=== PATIENT | female | born 1970 | race Caucasian/White ===

== ENCOUNTER 2017-12-07 15:00 | Outpatient (CLI) | payer OTHER ==
--- NOTE | 2017-12-08 16:03 | MMO ---
MAMMOGRAM DIGITAL SCREENING BILATERAL: DATE: 12/07/17 HISTORY: 47-year-old female for routine bilateral screening mammogram. COMPARISON: 01/26/16 and 01/19/15. TECHNIQUE: Digital mammographic views. Computer-aided detection (CAD) utilized. FINDINGS: There are scattered areas of fibroglandular density. There is no evidence of suspicious mass, suspicious calcifications, or architectural distortion. The re is no significant interval change since the prior mammogram. IMPRESSION: 1. BIRADS 1 - Negative. 2. Recommendation: routine bilateral annual screening mammogram (unless the patient develops suspici ous clinical findings that would warrant earlier imaging follow up). felicitas [] POS: [facility]
== END 2017-12-07 15:01 | disposition home or self-care (01) ==
LOC: SCSMAMMO 15:00
PROVIDERS: ATTEND Family Medicine
DX: Z12.31 Encounter for screening mammogram for malignant neoplasm of breast (principal)
CPT/HCPCS: 77067

== ENCOUNTER 2018-06-19 14:44 | Emergency (ER) | payer OTHER ==
[2018-06-19] MEDS ORDERED: Ketorolac Tromethamine 30 MG/ML VIAL ONE (15:25)
--- NOTE | 2018-06-19 15:31 | RAD ---
SINGLE VIEW CHEST: Date: 06/19/18 COMPARISON: None. HISTORY: Chest pain since yesterday. FINDINGS: Single view of the chest shows normal sized cardiomediastinal silhouette. Atelectasis is seen in both lung bases. There is no evidence of consolidation, mass, or pleural effusion. IMPRESSION: Bibasilar atelectasis. POS: [facility]
[2018-06-19 15:39] LABS: #Basophils 0.1 thou/uL (0.0-0.2); #Eosinphils 0.2 thou/uL (0.0-0.7); #Lymphocytes 2.4 thou/uL (1.20-3.40); #Monocytes 0.7 thou/uL (0.11-0.59); #Neutrophils 6.5 thou/uL (1.40-6.50); %Basophils 1.3 % (0.0-1.0); %Eosinophils 1.6 % (0.0-10.0); %Lymphocytes 24.2 % (21.0-51.0); %Monocytes 7.5 % (0.0-10.0); %Neutrophils 65.4 % (42.0-75.0); Hemoglobin 15.5 g/dL (12.0-16.0); Mean Corpuscular HGB CONC 33.5 g/dL (32.0-36.0); Mean Corpuscular Hemoglobin 30.1 pg (27.0-31.0); Mean Corpuscular Volume 90.1 fL (78.0-98.0); Mean Platelet Volume 7.8 fL (7.4-10.4); Platelet Count 336 thou/uL (130-400); RBC Distribution Width 12.2 % (11.5-14.5); Red Blood Cell (RBC) Count 5.14 mill/uL (4.20-5.40); White Blood Cell (WBC) Count 9.9 thou/uL (4.8-10.8)
[2018-06-19 15:43] LABS: ALT (SGPT) 22 U/L (8-55); AST (SGOT) 18 U/L (5-34); Albumin 4.2 g/dL (3.5-5.0); Alkaline Phosphatase 88 U/L (40-150); Anion Gap 14 mmol/L (10-20); BUN (Urea Nitrogen) 9 mg/dL (7.0-18.7); Bilirubin, Total 0.4 mg/dL (0.2-1.2); Calc. Creatinine Clearance 0 mL/min (70-130); Calcium 9.8 mg/dL (7.8-10.44); Carbon Dioxide 31 mmol/L (22-29); Chloride 96 mmol/L (98-107); Estimated GFR-MDRD 82; Globulin 3.1 g/dL (2.4-3.5); Glucose 146 mg/dL (70-105); Lipase 18 U/L (8-78); Protein, Total 7.3 g/dL (6.0-8.3); Sodium 138 mmol/L (136-145)
[2018-06-19] MEDS ORDERED: Morphine 4 MG/ML Carpuject ONE (16:12)
[2018-06-19] MEDS ORDERED: Potassium Chloride 20 MEQ TAB ONE (16:13)
--- NOTE | 2018-06-19 17:38 | CT ---
CT ANGIO OF CHEST PERFORMED WITH INTRAVENOUS CONTRAST ENHANCEMENT WITH 3D RECONSTRUCTIONS 06/19/18 HISTORY: Chest pain. There is a pleural based density seen along the right side of the anterior mediastinum in the right u pper lobe. It measures in the 7 mm range. There is a noncalcified 2 to 3 mm right upper lobe pulmonar y nodule seen. There are some parenchymal changes within the right middle lobe which are more linear in nature. There is also linear changes in both bases suggestive more of atelectasis than a focal inf iltrative process. There is a nodular parenchymal density seen within the lingula. Appears to have an air bronchogram within it. It would be more suggestive of an infiltrative process than a pulmonary m ass. It is seen on axial image 76 and measures approximately 2 cm in size. In addition, within the le ft upper lobe, there is a pulmonary nodule that has some minimal surrounding parenchymal change. It m easures 10 mm in size. It is more mass-like in appearance but could still present some nodular infilt rate. There is no significant mediastinal or hilar lymphadenopathy. There are small subcentimeter nodes se en. The thoracic aorta is normal in caliber. The pulmonary arteries are well opacified and there is no CT evidence for pulmonary embolus. The visualized liver parenchyma shows no focal findings on this angiographic phase exam. The right an d left adrenal glands are normal. IMPRESSION: 1. No CT evidence for pulmonary embolus. 2. Moderate linear parenchymal changes in the right middle lobe and both lung bases more suggest mayra of atelectasis than infiltrate. There is a patchy nodular infiltrate within the lingula and a mor e defined 10 mm nodular density seen in the left upper lobe, although this could be part of an infect ious process. The possibility of a pulmonary mass is definitely not excluded. I would recommend short term followup at 2 to 3 weeks after appropriate therapy, particularly if patient has symptoms that w ould suggest an infectious process. POS: [facility]
== END 2018-06-19 17:50 | disposition home or self-care (01) ==
LOC: SCSER 14:44
DX: J18.9 Pneumonia, unspecified organism (principal); R07.81 Pleurodynia; I10 Essential (primary) hypertension; F32.9 Major depressive disorder, single episode, unspecified; F17.210 Nicotine dependence, cigarettes, uncomplicated
CPT/HCPCS: 71045; 71275; 80053; 83690; 84484; 85025; 85379; 93005; 96361; 96374; 96375; J1885; J2270

== ENCOUNTER 2018-07-18 08:13 | Outpatient (CLI) | payer OTHER ==
[2018-07-18] MEDS ORDERED: Iopamidol 300 61% 100 ML VIAL FS ONE (09:00)
[2018-07-18 09:31] LABS: ALT (SGPT) 22 U/L (8-55); Alkaline Phosphatase 85 U/L (40-150); Anion Gap 13 mmol/L (10-20); BUN (Urea Nitrogen) 16 mg/dL (7.0-18.7); Bilirubin, Total 0.4 mg/dL (0.2-1.2); Calc. Creatinine Clearance 0 mL/min (70-130); Calcium 9.9 mg/dL (7.8-10.44); Carbon Dioxide 31 mmol/L (22-29); Cardiac Risk 4.6 (Less than 4.5); Chloride 101 mmol/L (98-107); Cholesterol 195 mg/dl (< 200 Desired); Estimated GFR-MDRD 82; Glucose 129 mg/dL (70-105); HDL Cholesterol 42 mg/dL (>60 Neg Risk); LDL Cholesterol, Calculated 132 mg/dL; Sodium 141 mmol/L (136-145); Triglycerides 106 mg/dL (Less than 150)
[2018-07-18 09:38] LABS: AST (SGOT) 21 U/L (5-34)
--- NOTE | 2018-07-18 11:08 | CT ---
CT CHEST WITH CONTRAST: INDICATIONS: Follow up nodules and infiltrate. COMPARISON: CT from 06/19/2018. TECHNIQUE: Multiple axial tomograms obtained through the chest with IV enhancement. FINDINGS: Infiltrative changes seen in the right upper lobe and in both lower lobes on the prior study show sig nificant improvement. The nodular density in the left upper lobe noted previously, at 10 mm, has decreased in size and eh ures in the 5 mm range today. A tiny nodule in the right upper lobe, measuring 4 to 5 mm on the prio r study, is not seen today. There continues to be a small, 4 to 5 mm nodule in the right mid lung, a long the fissure, which appears unchanged. On today's exam, there is a subtle pleural-based nodule, left peripheral mid lung field, best appreciated on coronal imaging, measuring 6 to 7 mm. The mediastinum shows nonspecific lymph nodes, which appear stable. Images through the upper abdomen are unremarkable. Calcification in the right renal cortex is again noted. IMPRESSION: 1. Resolution of the previously noted infiltrative changes in both lungs, when compared to the exami nation of 06/19/2018. Findings indicate resolution of an infectious process. 2. There continue to be several scattered nodular opacities, as noted above. The previously noted n odule in the left upper lobe has decreased in size. Suggest follow-up noncontrast CT chest in 6 to 12 months, to re-evaluate these scattered small nodule s. POS: [facility]
[2018-07-18 11:17] LABS: Creatinine, Urine 142.74 mg/dL (47-110); Microalbumin Urine Less than 1.0 mg/dL (0.5-50.0)
[2018-07-18 11:28] LABS: Hemoglobin A1c 6.3 % (4.0-6.0)
== END 2018-07-18 08:14 | disposition home or self-care (01) ==
LOC: SCSCT 08:13
PROVIDERS: ATTEND Family Medicine
DX: E11.9 Type 2 diabetes mellitus without complications (principal); R91.8 Other nonspecific abnormal finding of lung field; R91.1 Solitary pulmonary nodule
CPT/HCPCS: 36415; 71260; 80053; 80061; 82043; 83036

== ENCOUNTER 2018-09-10 17:00 | Outpatient (CLI) | payer OTHER | END 2018-09-10 17:01 | disposition home or self-care (01) | LOC: SLEEPLAB 17:00 | PROVIDERS: ATTEND Family Medicine | DX: G47.33 Obstructive sleep apnea (adult) (pediatric) (principal); F31.9 Bipolar disorder, unspecified; E66.9 Obesity, unspecified; I10 Essential (primary) hypertension; E11.9 Type 2 diabetes mellitus without complications; R06.83 Snoring; R53.83 Other fatigue; Z68.38 Body mass index [BMI] 38.0-38.9, adult | CPT/HCPCS: 95806 ==

== ENCOUNTER 2020-09-29 09:28 | Outpatient (CLI) | payer OTHER | END 2020-09-29 09:29 | disposition home or self-care (01) | LOC: BICCT 09:28 | PROVIDERS: ATTEND Internal Medicine Pulmonary Disease | DX: R91.1 Solitary pulmonary nodule (principal) | CPT/HCPCS: 71250 ==

== ENCOUNTER 2022-01-18 14:03 | Outpatient (CLI) | payer BC ==
[~2022-01-18 14:03] MED LIST: Iopamidol 370 76% 100 ML VIAL ONE
== END 2022-01-18 14:04 | disposition home or self-care (01) ==
LOC: BICCT 14:03
PROVIDERS: ATTEND Family Medicine
DX: R19.7 Diarrhea, unspecified (principal); N20.0 Calculus of kidney; Z90.710 Acquired absence of both cervix and uterus
CPT/HCPCS: 74177

== ENCOUNTER 2022-08-18 16:13 | Outpatient (CLI) | payer BC ==
[2022-08-18 16:55] LABS: Hemoglobin 13.1 g/dL (12.0-15.5); Mean Corpuscular HGB CONC 33.2 g/dL (32.0-36.0); Mean Corpuscular Hemoglobin 29.6 pg (27.0-33.0); Mean Corpuscular Volume 89.1 fl (81.6-98.3); Mean Platelet Volume 8.9 fl (7.4-10.4); Platelet Count 267 10x3/uL (150-450); RBC Distribution Width 12.2 % (11.5-14.5); Red Blood Cell (RBC) Count 4.42 10x6/uL (3.90-5.03); White Blood Cell (WBC) Count 4.2 10x3/uL (3.5-10.5)
[2022-08-18 17:07] LABS: PTT 30.2 sec (22.0-33.0); Prothrombin Time 10.9 sec (9.5-12.1)
[2022-08-18 17:10] LABS: Anion Gap 14 mmol/L (10-20); BUN (Urea Nitrogen) 13 mg/dL (7.0-18.7); Calc. Creatinine Clearance 0 mL/min (70-130); Calcium 9.6 mg/dL (7.8-10.44); Carbon Dioxide 30 mmol/L (22-29); Chloride 105 mmol/L (98-107); Estimated GFR 87; Glucose 80 mg/dL (70-105); Potassium 3.9 mmol/L (3.5-5.1); Sodium 145 mmol/L (136-145)
== END 2022-08-18 16:14 | disposition home or self-care (01) ==
LOC: LABBT 16:13
PROVIDERS: ATTEND Surgery
DX: Z01.812 Encounter for preprocedural laboratory examination (principal); M48.02 Spinal stenosis, cervical region; M54.12 Radiculopathy, cervical region
CPT/HCPCS: 93005; 93010

== ENCOUNTER 2022-08-23 05:52 | Observation (INO) | payer BC ==
[2022-08-23] MEDS ORDERED: Thrombin 5000 UNITS/5 ML VIAL ONE (06:27)
[2022-08-23] MEDS ORDERED: Magnesium 5 GM/10 ML VIAL ONE (07:04)
[2022-08-23] MEDS ORDERED: Acetaminophen 500 MG TAB ONE (07:04)
[2022-08-23] MEDS ORDERED: Dexmedetomidine 200 MCG/2 ML VIAL ONE (07:04)
[2022-08-23] MEDS ORDERED: KETAMINE 100 MG/ML (5ML VIAL) ONE (07:04)
[2022-08-23] MEDS ORDERED: CEFAZOLIN 2 GM VIAL ONE (07:24)
[2022-08-23] MEDS ORDERED: Sodium Chloride 0.9% 100 ML ONE (07:24)
[2022-08-23] MEDS ORDERED: Rocuronium Bromide 10 MG/ML (10ML VIAL) ONE (07:38)
[2022-08-23] MEDS ORDERED: Dexamethasone 20 MG/5 ML VIAL ONE (07:38)
[2022-08-23] MEDS ORDERED: PROPOFOL 200 MG/20 ML VIAL ONE (07:38)
[2022-08-23] MEDS ORDERED: Lidocaine 1% PF 5 ML VIAL ONE (07:38)
[2022-08-23] MEDS ORDERED: Ketorolac Tromethamine 30 MG/ML VIAL ONE (07:38)
[2022-08-23] MEDS ORDERED: Ondansetron PF 4 MG/2 ML Vial ONE (07:38)
[2022-08-23] MEDS ORDERED: GLYCOPYRROLATE/PF 0.2 MG/ML VIAL ONE (07:38)
[2022-08-23] MEDS ORDERED: Phenylephrine 10 MG/ML VIAL ONE (07:38)
[2022-08-23] MEDS ORDERED: PHENYLEPHRINE-NS 100 MCG/ML 10 ML SYRINGE ONE (08:08)
[2022-08-23] MEDS ORDERED: traMADol HCl 50 MG TAB PO PRN (10:03)
[2022-08-23] MEDS ORDERED: Morphine 2 MG/ML VIAL SLOW IVP PRN (10:03)
[2022-08-23] MEDS ORDERED: Ondansetron PF 4 MG/2 ML Vial IVP PRN (10:03)
[2022-08-23] MEDS ORDERED: Acetaminophen 325 MG TAB PO PRN (10:03)
[2022-08-23] MEDS ORDERED: Acetaminophen/Codeine 30-300mg Tablet PO PRN (10:03)
[2022-08-23] MEDS ORDERED: tiZANidine HCl 4 MG TAB PO PRN (10:07)
[2022-08-23] MEDS ORDERED: fentaNYL 50 mcg/mL 1 mL Vial ONE ×3 (10:09→10:58)
[2022-08-23] MEDS ORDERED: Meperidine HCl/PF 25 MG/ML VIAL SLOW IVP PRN (10:12)
[2022-08-23] MEDS ORDERED: HYDROmorphone 2 MG/ML VIAL SLOW IVP PRN (10:12)
[2022-08-23] MEDS ORDERED: Promethazine HCl 25 MG/ML VIAL IM PRN (10:12)
[2022-08-23] MEDS ORDERED: Ondansetron HCl/PF 4 MG/2 ML Vial IVP PRN (10:12)
[2022-08-23] MEDS ORDERED: HYDROmorphone 2 MG/ML VIAL ONE (10:33)
[2022-08-23 13:44] VITALS: BMI 30.5
[2022-08-23] MEDS: Sodium Chloride 0.9% 1,000 ML IV SCH ×2 (15:03→20:55)
[2022-08-23] MEDS: HYDROcodone/Acetaminophen 7.5/325 mg Tablet PO PRN ×2 (15:43→20:55)
[2022-08-23] MEDS: CEFAZOLIN 2 GM in Sodium Chloride 0.9% 100 ML IVPB SCH ×2 (15:44→22:41)
[2022-08-23] MEDS: Potassium Chloride 10 MEQ TAB PO SCH (20:55)
[2022-08-23] MEDS ORDERED: Atorvastatin Calcium 40 MG TAB PO SCH (21:00)
[2022-08-23] MEDS ORDERED: Cepastat Lozenges 1 LOZ PO PRN (21:13)
[2022-08-23] MEDS ORDERED: Phenol 118 ML BOT PO PRN (21:13)
[2022-08-24] MEDS: HYDROcodone/Acetaminophen 7.5/325 mg Tablet PO PRN (04:23)
[2022-08-24 07:43] VITALS: BP 94/59; TEMP 97.5
[2022-08-24] MEDS ORDERED: Losartan 25 MG TAB PO SCH (09:00)
[2022-08-24] MEDS ORDERED: DULoxetine 60 MG CAP PO SCH (09:00)
[2022-08-24] MEDS ORDERED: lamoTRIgine 25 MG TAB PO SCH (09:00)
[2022-08-24] MEDS ORDERED: Chlorthalidone 25 MG TAB PO SCH (09:00)
[2022-08-24] MEDS: CEFAZOLIN 2 GM in Sodium Chloride 0.9% 100 ML IVPB SCH (09:15)
[2022-08-24] MEDS: Potassium Chloride 10 MEQ TAB PO SCH (09:25)
== END 2022-08-24 11:15 | disposition home or self-care (01) ==
LOC: SDC 05:52 → T4-A 10:08
PROVIDERS: ADMIT Surgery; ATTEND Surgery
PROC: 0RG20A0 Fusion of 2 or more Cervical Vertebral Joints with Interbody Fusion Device, Anterior Approach, Anterior Column, Open Approach (ICD-10-PCS; principal; 2022-08-23)
PROC: 0RT30ZZ Resection of Cervical Vertebral Disc, Open Approach (ICD-10-PCS; 2022-08-23)
DX: M48.02 Spinal stenosis, cervical region (principal); M50.122 Cervical disc disorder at C5-C6 level with radiculopathy; I10 Essential (primary) hypertension; E78.5 Hyperlipidemia, unspecified; F17.210 Nicotine dependence, cigarettes, uncomplicated; Z79.1 Long term (current) use of non-steroidal anti-inflammatories (NSAID); Z79.85 Long-term (current) use of injectable non-insulin antidiabetic drugs; Z79.899 Other long term (current) drug therapy; Z88.2 Allergy status to sulfonamides
CPT/HCPCS: 96374; 96376; C1713; G0378; J1100; J1170; J1885; J2370; J2405; J2704; J3010; J3475; J3490